=== PATIENT | female | born 1945 | race Caucasian/White ===

== ENCOUNTER 2018-07-25 13:19 | Inpatient (IN) | payer OTHER ==
[2018-07-25] MEDS ORDERED: METOPROLOL TARTRATE 5 MG/5 ML INJ IV ONE (14:00)
--- NOTE | 2018-07-25 14:23 | RAD REPORT ---
EXAM DESCRIPTION: RAD - Chest Single View - 07/25/2018 2:16 pm CLINICAL HISTORY: arrythmia Chest pain. COMPARISON: ABDOMEN 1 VIEW KUB dated 07/06/2014; CHEST SINGLE VIEW dated 08/21/2013; CHEST SINGLE VIEW dated 08/19/2013; CHEST PA AND LAT 2 VIEW dated 12/08/2011 FINDINGS: Portable technique limits examination quality. The lungs are grossly clear. The heart is mildly enlarged in size. No displaced fractures. IMPRESSION: Mild cardiomegaly.
[2018-07-25 14:32] LABS: Protime INR 1.39
[2018-07-25 14:35] LABS: Absolute Lymphocytes (CBC) 1.9 K/uL (0.7-4.9); Absolute Monocytes 0.7 K/uL (0.1-1.3); Absolute Neutrophil 5.7 K/uL (1.8-8.0); Basophils % 1.1 % (0-1.3); Eosinophils % 1.5 % (0-4.4); Hematocrit 38.3 % (36.0-45.0); Lymphocytes % 22.9 % (15.3-44.8); MPV 10.6 fL (7.6-11.3); Monocytes % 7.9 % (3.3-12.3)
[2018-07-25 14:49] LABS: ALT/SGPT 26 U/L (12-78); AST/SGOT 8 U/L (15-37); Albumin 3.2 g/dL (3.4-5.0); Alkaline Phosphatase 46 U/L (45-117); BUN Blood Urea Nitrogen 40 mg/dL (7-18); Bicarbonate 26 mmol/L (21-32); Bilirubin Direct 0.2 mg/dL (0-0.2); Glucose Level 89 mg/dL (74-106); NT PRO-BNP 3847 pg/mL (<125); Potassium 3.6 mmol/L (3.5-5.1); Protein, Total 6.5 g/dL (6.4-8.2); Sodium Level 142 mmol/L (136-145); Troponin (Emerg Dept Use Only) < 0.02 ng/mL (0.0-0.045)
[2018-07-25] MEDS ORDERED: DIGOXIN 0.25 MG/ML AMP ONE (15:06)
[2018-07-25] MEDS ORDERED: SOTALOL HCL 80 MG TAB ONE (15:06)
--- NOTE | 2018-07-25 17:58 | EDPHYS ---
Physician Documentation [facility] Name: Angelina Cedillo Age: 72 yrs Sex: Female : 1945 Arrival Date: 07/25/2018 Time: : Bed 6 Private MD: Fantasma Mendoza ED Physician Guicho Nath HPI: 07/25 17:58 This 72 yrs old Female presents to ER via Wheelchair with complaints of AFIB kdr SENT BY DR CANALES. 17:58 The patient presents with a history of irregular heart beat, heart racing. Context: The kdr symptoms occur at rest. Onset: The symptoms/episode began/occurred 3 day(s) ago. Duration: The patient or guardian reports a single episode, that is still ongoing. Modifying factors: The symptoms are aggravated by light activity, The symptoms are alleviated by nothing. Associated signs and symptoms: The patient has no apparent associated signs or symptoms. Severity of symptoms: At their worst the symptoms were mild in the emergency department the symptoms are unchanged Pain is currently a 0 / 10. The patient has not experienced similar symptoms in the past. The patient has been recently seen by a physician: Seen by Dr. Canales on Sunday and started on beta kleber and Eliquis. Since her rate had worsened, he asked that she come to the ED for further evaluation and treatment. Historical: - Allergies: 13:35 Latex, Natural Rubber; aj1 13:35 Codeine; aj1 - Home Meds: 13:35 Metoprolol Tartrate Oral [Active]; gabapentin oral oral [Active]; Symbicort inhalation aj1 inhalation [Active]; Allopurinol Oral [Active]; Vitamin B-12 Oral [Active]; levothyroxine oral [Active]; Furosemide Oral [Active]; montelukast oral oral [Active]; Omeprazole Oral [Active]; Tramadol Oral [Active]; Eliquis oral oral [Active]; - PMHx: 13:35 Atrial Fib; Gout; Hypothyroidism; aj1 - PSHx: 13:35 Hysterectomy; Cholecystectomy; abdominal surgery; aj1 - Immunization history:: Flu vaccine is not up to date. - Social history:: Smoking status: Patient/guardian denies using tobacco. - Ebola Screening: : Patient denies travel to an Ebola-affected area in the 21 days before illness onset. ROS: 17:58 Constitutional: Negative for fever, chills, and weight loss, Eyes: Negative for injury, kdr pain, redness, and discharge, ENT: Negative for injury, pain, and discharge, Neck: Negative for injury, pain, and swelling, Respiratory: Negative for shortness of breath, cough, wheezing, and pleuritic chest pain, Abdomen/GI: Negative for abdominal pain, nausea, vomiting, diarrhea, and constipation, Back: Negative for injury and pain, : Negative for injury, bleeding, discharge, and swelling, MS/Extremity: Negative for injury and deformity, Skin: Negative for injury, rash, and discoloration, Neuro: Negative for headache, weakness, numbness, tingling, and seizure activity. Psych: Negative for depression, anxiety, suicide ideation, homicidal ideation, and hallucinations, Allergy/Immunology: Negative for hives, rash, and allergies, Endocrine: Negative for neck swelling, polydipsia, polyuria, polyphagia, and marked weight changes, Hematologic/Lymphatic: Negative for swollen nodes, abnormal bleeding, and unusual bruising. 17:58 Cardiovascular: Positive for palpitations, Negative for chest pain, edema, orthopnea, paroxysmal nocturnal dyspnea. Exam: 17:58 Constitutional: This is a well developed, well nourished patient who is awake, alert, kdr and in no acute distress. Head/Face: Normocephalic, atraumatic. Eyes: Pupils equal round and reactive to light, extra-ocular motions intact. Lids and lashes normal. Conjunctiva and sclera are non-icteric and not injected. Cornea within normal limits. Periorbital areas with no swelling, redness, or edema. Neck: Trachea midline, no thyromegaly or masses palpated, and no cervical lymphadenopathy. Supple, full range of motion without nuchal rigidity, or vertebral point tenderness. No Meningismus. Chest/axilla: Normal chest wall appearance and motion. Nontender with no deformity. No lesions are appreciated. Respiratory: Lungs have equal breath sounds bilaterally, clear to auscultation and percussion. No rales, rhonchi or wheezes noted. No increased work of breathing, no retractions or nasal flaring. Abdomen/GI: Soft, non-tender, with normal bowel sounds. No distension or tympany. No guarding or rebound. No evidence of tenderness throughout. Back: No spinal tenderness. No costovertebral tenderness. Full range of motion. Skin: Warm, dry with normal turgor. Normal color with no rashes, no lesions, and no evidence of cellulitis. MS/ Extremity: Pulses equal, no cyanosis. Neurovascular intact. Full, normal range of motion. Neuro: Awake and alert, GCS 15, oriented to person, place, time, and situation. Cranial nerves II-XII grossly intact. Motor strength 5/5 in all extremities. Sensory grossly intact. Cerebellar exam normal. Normal gait. Psych: Awake, alert, with orientation to person, place and time. Behavior, mood, and affect are within normal limits. 17:58 Cardiovascular: Rate: tachycardic, Rhythm: irregularly irregular, Pulses: no pulse deficits are appreciated, Heart sounds: normal. 17:58 ECG was reviewed by the Attending Physician. Vital Signs: 13:35 BP 109 / 88; Pulse 78; Resp 18; Temp 97.6(O); Pulse Ox 98% on R/A; Weight 139.25 kg aj1 (R); Height 5 ft. 6 in. (167.64 cm) (R); Pain 0/10; 13:50 BP 132 / 91; Pulse 156; Resp 18; Pulse Ox 98% on R/A; Pain 0/10; sg 14:16 BP 106 / 58; Pulse 146 MON; Resp 18 S; Pulse Ox 98% ; sg 14:30 BP 98 / 63; Pulse 144 MON; Resp 22; Pulse Ox 98% ; sg 14:30 Pulse 140; tw2 15:00 BP 101 / 84; Pulse 138; Resp 19 S; Pulse Ox 99% on R/A; sg 16:30 BP 114 / 78; Pulse 135 MON; Resp 17; Pulse Ox 97% on R/A; sg 19:12 BP 123 / 96; Pulse 135; Resp 22; Pulse Ox 97% on R/A; tl2 13:35 Body Mass Index 49.55 (139.25 kg, 167.64 cm) aj1 MDM: 17:58 Patient medically screened. kdr 17:58 Data reviewed: vital signs, nurses notes. kdr 07/25 13:46 Order name: Basic Metabolic Panel kdr 07/25 13:46 Order name: CBC with Diff kdr 07/25 13:46 Order name: LFT's; Complete Time: 16:49 kdr 07/25 13:46 Order name: Magnesium; Complete Time: 16:49 kdr 07/25 13:46 Order name: NT PRO-BNP; Complete Time: 16:49 kdr 07/25 13:46 Order name: PT-INR; Complete Time: 16:49 kdr 07/25 13:46 Order name: Troponin (emerg Dept Use Only); Complete Time: 16:49 kdr 07/25 13:46 Order name: XRAY Chest (1 view) kdr 07/25 13:47 Order name: Basic Metabolic Panel; Complete Time: 16:49 EDMS 07/25 13:47 Order name: CBC with Automated Diff; Complete Time: 16:49 EDMS 07/25 14:24 Order name: RAD; Complete Time: 16:49 EDMS 07/25 13:46 Order name: EKG; Complete Time: 13:47 kdr 07/25 13:46 Order name: Cardiac monitoring; Complete Time: 14:30 kdr 07/25 13:46 Order name: EKG - Nurse/Tech; Complete Time: 14:30 kdr 07/25 13:46 Order name: IV Saline Lock; Complete Time: 14:08 kdr 07/25 13:46 Order name: Labs collected and sent; Complete Time: 14:08 kdr 07/25 13:46 Order name: O2 Per Protocol; Complete Time: 14:08 kdr 07/25 13:46 Order name: O2 Sat Monitoring; Complete Time: 14:08 kdr 07/25 16:46 Order name: Diet Heart Healthy; Complete Time: 16:46 sg EC:58 Rate is 135 beats/min. Rhythm is irregularly irregular, A fib with No ectopy. QRS [place] kdr is Normal. Clinical impression: Atrial Fibrillation. Administered Medications: 13:56 Drug: Metoprolol 5 mg Route: IVP; Site: left antecubital; sg 14:30 Follow up: Pulse 140 bpm; Response: No adverse reaction; Other; Other: HR is lowered tw2 15:05 Drug: Digoxin 0.5 mg Route: IVP; Site: left antecubital; sg 15:19 Follow up: Response: No adverse reaction; No change in condition sg 16:54 Drug: Betapace 80 mg Route: PO; sg 19:57 Follow up: Response: Cardiac rhythm is unchanged tl2 Disposition: 07/25/18 17:58 Hospitalization ordered by Yanelis Houser for Inpatient Admission. Preliminary diagnosis is Atrial Fibrillation w/ RVR. - Bed requested for Telemetry/MedSurg (Inpatient). - Status is Inpatient Admission. tl2 - Condition is Fair. - Problem is new. - Symptoms are unchanged. UTI on Admission? No Signatures: Dispatcher [employer] EDMS Negar Durán RN RN aj1 Jazlyn Sherman RN RN dw Dorian Kong RN RN Guicho Nath MD MD [facility] Sanket Rudd em1 Alisson Dixon RN RN tl2 Nicole Lema Tara RN tw2 Corrections: (The following items were deleted from the chart) 18:14 17:58 Hospitalization Ordered by Yanelis Houser MD for Inpatient Admission. Preliminary dw diagnosis is Atrial Fibrillation w/ RVR. Bed requested for Telemetry/MedSurg (Inpatient). Status is Inpatient Admission. Condition is Fair. Problem is new. Symptoms are unchanged. UTI on Admission? No. kdr 18:43 18:14 07/25/2018 17:58 Hospitalization Ordered by Yanelis Houser MD for Inpatient eb Admission. Preliminary diagnosis is Atrial Fibrillation w/ RVR. Bed requested for Telemetry/MedSurg (Inpatient). Status is Inpatient Admission. Condition is Fair. Problem is new. Symptoms are unchanged. UTI on Admission? No. dw 19:20 18:43 07/25/2018 17:58 Hospitalization Ordered by Yanelis Houser MD for Inpatient em1 Admission. Preliminary diagnosis is Atrial Fibrillation w/ RVR. Bed requested for Telemetry/MedSurg (Inpatient). Status is Inpatient Admission. Condition is Fair. Problem is new. Symptoms are unchanged. UTI on Admission? No. eb 20:07 19:20 07/25/2018 17:58 Hospitalization Ordered by Yanelis Houser MD for Inpatient tl2 Admission. Preliminary diagnosis is Atrial Fibrillation w/ RVR. Bed requested for Telemetry/MedSurg (Inpatient). Status is Inpatient Admission. Condition is Fair. Problem is new. Symptoms are unchanged. UTI on Admission? No. em1
--- NOTE | 2018-07-25 17:58 | ER ---
Nurse's Notes [facility] Name: Angelina Cedillo Age: 72 yrs Sex: Female : 1945 Arrival Date: 07/25/2018 Time: : Bed 6 Private MD: Fantasma Mendoza Diagnosis: Atrial Fibrillation w/ RVR Presentation: 07/25 13:27 Presenting complaint: Patient states: "Dr. Canales said I was in A-Fib and my heart rate aj1 is too high and they need to correct it." Reports that her heart rate was in the 160's at Dr. Canales office. Transition of care: patient was not received from another setting of care. Onset of symptoms was July 25, 2018 at 13:30. Risk Assessment: Do you want to hurt yourself or someone else? Patient reports no desire to harm self or others. Initial Sepsis Screen: Does the patient meet any 2 criteria? No. Patient's initial sepsis screen is negative. Does the patient have a suspected source of infection? No. Patient's initial sepsis screen is negative. Care prior to arrival: None. 13:27 Method Of Arrival: Wheelchair aj1 13:27 Acuity: MARLO 3 aj1 Triage Assessment: 13:35 General: Appears in no apparent distress. comfortable, Behavior is calm, cooperative, aj1 appropriate for age. Pain: Denies pain. Neuro: Level of Consciousness is awake, alert, obeys commands. Cardiovascular: Patient's skin is warm and dry. Respiratory: Airway is patent Respiratory effort is even, unlabored, Respiratory pattern is regular, symmetrical. Historical: - Allergies: 13:35 Latex, Natural Rubber; aj1 13:35 Codeine; aj1 - Home Meds: 13:35 Metoprolol Tartrate Oral [Active]; gabapentin oral oral [Active]; Symbicort inhalation aj1 inhalation [Active]; Allopurinol Oral [Active]; Vitamin B-12 Oral [Active]; levothyroxine oral [Active]; Furosemide Oral [Active]; montelukast oral oral [Active]; Omeprazole Oral [Active]; Tramadol Oral [Active]; Eliquis oral oral [Active]; - PMHx: 13:35 Atrial Fib; Gout; Hypothyroidism; aj1 - PSHx: 13:35 Hysterectomy; Cholecystectomy; abdominal surgery; aj1 - Immunization history:: Flu vaccine is not up to date. - Social history:: Smoking status: Patient/guardian denies using tobacco. - Ebola Screening: : Patient denies travel to an Ebola-affected area in the 21 days before illness onset. Screenin:09 Abuse screen: Denies threats or abuse. Denies injuries from another. Nutritional sg screening: No deficits noted. Tuberculosis screening: No symptoms or risk factors identified. Never had TB. Fall Risk None identified. Assessment: 14:00 General: Appears in no apparent distress. comfortable, obese, well groomed, well sg developed, well nourished, Behavior is calm, cooperative, appropriate for age. Pain: Denies pain. Neuro: No deficits noted. Cardiovascular: Heart tones S1 S2 present Capillary refill is brisk in bilateral fingers Patient's skin is warm and dry. Chest pain is denied. Cardiovascular: Reports palpitations, shortness of breath. Respiratory: Airway is patent Respiratory effort is even, unlabored, Respiratory pattern is regular, symmetrical, Breath sounds are clear. GI: No signs and/or symptoms were reported involving the gastrointestinal system. : No deficits noted. EENT: No signs and/or symptoms were reported regarding the EENT system. Derm: Skin is pink, warm \\T\\ dry. Musculoskeletal: No signs and/or symptoms reported regarding the musculoskeletal system. 15:00 Reassessment: Patient appears in no apparent distress at this time. No changes from tw2 previously documented assessment. Patient and/or family updated on plan of care and expected duration. Pain level reassessed. Patient is alert, oriented x 3, equal unlabored respirations, skin warm/dry/pink. 15:36 Reassessment: Patient appears in no apparent distress at this time. Patient and/or sg family updated on plan of care and expected duration. Pain level reassessed. Patient is alert, oriented x 3, equal unlabored respirations, skin warm/dry/pink. at bedside evaluating pt at this time, pt denies pain or having s/s at this time. 16:30 Reassessment: Patient appears in no apparent distress at this time. Patient and/or sg family updated on plan of care and expected duration. Pain level reassessed. Patient is alert, oriented x 3, equal unlabored respirations, skin warm/dry/pink. denies pain, elimination needs have been met, pt family remains at bedside, call omer remains within reach, SRX2, antonette in low and locked position, pt requesting food, Dr. Nath notified. 16:48 Reassessment: Patient appears in no apparent distress at this time. Patient and/or sg family updated on plan of care and expected duration. Pain level reassessed. Patient is alert, oriented x 3, equal unlabored respirations, skin warm/dry/pink. pt updated that a food tray has been ordered, pt reports having a long list of food allergy, but main allergy to tomato and potato, reports due to eliquis does not eat green leafy vegetables as well. 17:15 Reassessment: Patient appears in no apparent distress at this time. Patient is alert, sg oriented x 3, equal unlabored respirations, skin warm/dry/pink. pt awaiting PO diet tray at this time. 17:40 Reassessment: Patient appears in no apparent distress at this time. Patient and/or sg family updated on plan of care and expected duration. Pain level reassessed. Patient is alert, oriented x 3, equal unlabored respirations, skin warm/dry/pink. pt tolerated PO diet tray at this time, no assistance required, awaiting a bed assignment and admission orders, pt stated understanding. 18:40 Reassessment: Patient appears in no apparent distress at this time. Patient and/or sg family updated on plan of care and expected duration. Pain level reassessed. Patient is alert, oriented x 3, equal unlabored respirations, skin warm/dry/pink. awaiting to call report at this time, a bed assignment has been made but the room number will be changed from 4th floor to 2nd floor, pt updated and stated understanding Patient denies pain at this time. Patient states feeling better. 19:12 General: Appears in no apparent distress. comfortable, Behavior is calm, cooperative, tl2 appropriate for age. General: Awaiting new room assignment. Pain: Denies pain. Neuro: Level of Consciousness is awake, alert, obeys commands, Oriented to person, place, time, situation. Cardiovascular: Denies chest pain, Heart tones S1 S2 present. Respiratory: Airway is patent Respiratory effort is even, unlabored, Respiratory pattern is regular, symmetrical. GI: No signs and/or symptoms were reported involving the gastrointestinal system. Derm: Skin is pink, warm \\T\\ dry. 19:42 Reassessment: attempted to call report to receiving nurse, nurse stated that she was tl2 still getting report on her current patients at that she would call back. Vital Signs: 13:35 BP 109 / 88; Pulse 78; Resp 18; Temp 97.6(O); Pulse Ox 98% on R/A; Weight 139.25 kg aj1 (R); Height 5 ft. 6 in. (167.64 cm) (R); Pain 0/10; 13:50 BP 132 / 91; Pulse 156; Resp 18; Pulse Ox 98% on R/A; Pain 0/10; sg 14:16 BP 106 / 58; Pulse 146 MON; Resp 18 S; Pulse Ox 98% ; sg 14:30 BP 98 / 63; Pulse 144 MON; Resp 22; Pulse Ox 98% ; sg 14:30 Pulse 140; tw2 15:00 BP 101 / 84; Pulse 138; Resp 19 S; Pulse Ox 99% on R/A; sg 16:30 BP 114 / 78; Pulse 135 MON; Resp 17; Pulse Ox 97% on R/A; sg 19:12 BP 123 / 96; Pulse 135; Resp 22; Pulse Ox 97% on R/A; tl2 13:35 Body Mass Index 49.55 (139.25 kg, 167.64 cm) aj1 Vitals: 19:12 Cardiac Rhythm Assessment Atrial fibrillation. tl2 ED Course: 13:23 Patient arrived in ED. sb2 13:25 Fantasma Mendoza MD is Private Physician. sb2 13:30 Triage completed. aj1 13:35 Arm band placed on Patient placed in an exam room. aj1 13:37 Placed in gown. Bed in low position. Adult w/ patient. presentation team member on. Pulse ox on. tw2 NIBP on. Notified ED physician of vital signs. 13:46 Guicho Nath MD is Attending Physician. kdr 14:00 Birgit Oconnor RN is Primary Nurse. tw2 14:00 Initial lab(s) drawn, by ED staff, sent to lab. Inserted saline lock: 20 gauge in left sg antecubital area, using aseptic technique. Blood collected. 14:12 X-ray completed. Portable x-ray completed in exam room. Patient tolerated procedure ls3 well. 17:57 Yanelis Houser MD is Hospitalizing Provider. kdr 18:59 Primary Nurse role handed off by iBrgit Oconnor RN tw2 19:51 No provider procedures requiring assistance completed. Patient admitted, IV remains in tl2 place. Administered Medications: 13:56 Drug: Metoprolol 5 mg Route: IVP; Site: left antecubital; sg 14:30 Follow up: Pulse 140 bpm; Response: No adverse reaction; Other; Other: HR is lowered tw2 15:05 Drug: Digoxin 0.5 mg Route: IVP; Site: left antecubital; sg 15:19 Follow up: Response: No adverse reaction; No change in condition sg 16:54 Drug: Betapace 80 mg Route: PO; sg 19:57 Follow up: Response: Cardiac rhythm is unchanged tl2 Outcome: 17:58 Decision to Hospitalize by Provider. kdr 19:57 Admitted to Med/surg accompanied by tech, family with patient, via stretcher, room 206, tl2 Report called to MICHELLE Tamayo 19:57 Condition: stable 19:57 Discharge instructions given to patient, family, Instructed on the need for admit. 20:07 Patient left the ED. tl2 Signatures: Negar Durán, RN RN aj1 Dorian Kong RN Guicho Mary MD MD [facility] Birgit Oconnor RN RN tw2 Alisson Dixon RN RN tl2 Estephania Mahoney2 Tracy Blevins ls3
[2018-07-25] MEDS ORDERED: ACETAMINOPHEN 500 MG TAB PO PRN (19:51)
[2018-07-25] MEDS ORDERED: ONDANSETRON 4 MG/2 ML VIAL IV PRN (19:51)
[2018-07-25] MEDS: NA CHLORIDE 0.9% 1,000 ML IV SCH ×2 (19:51→20:58)
[2018-07-26 00:21] VITALS: BMI 49.4
[2018-07-26 00:23] LABS: Urine Appearance CLEAR; Urine Bilirubin NEGATIVE (NEG); Urine Blood NEGATIVE (NEG); Urine Color YELLOW; Urine Glucose NEGATIVE (NEG); Urine Microscopic Reflex ORDER UMIC; Urine Protein NEGATIVE (NEG); Urine Specific Gravity 1.015 (1.005-1.030); Urine Urobilinogen 0.2 mg/dL (0.2-1.0); Urine pH 6.5 (5.0-7.0)
[2018-07-26 01:36] LABS: Urine Bacteria LOADED /HPF (<20); Urine Culture Reflex Order REFLEXED; Urine RBC NONE SEEN /HPF (NONE SEEN)
[2018-07-26] MEDS: NA CHLORIDE 0.9% 1,000 ML IV SCH (05:21)
[2018-07-26 06:01] LABS: Absolute Lymphocytes (CBC) 1.7 K/uL (0.7-4.9); Absolute Monocytes 0.6 K/uL (0.1-1.3); Basophils % 0.8 % (0-1.3); Eosinophils % 2.2 % (0-4.4); Lymphocytes % 22.5 % (15.3-44.8); MPV 9.9 fL (7.6-11.3); Monocytes % 7.7 % (3.3-12.3); RBC Red Blood Cell Count 4.06 M/uL (3.86-4.86)
[2018-07-26 06:37] LABS: Bilirubin Total 1.3 mg/dL (0.2-1.0); Phosphorus 3.4 mg/dL (2.5-4.9); Protein, Total 6.2 g/dL (6.4-8.2)
--- NOTE | 2018-07-26 07:01 | EKG ---
Test Date: 2018-07-25 Test Time: 13:53:10 Associate Embalmer/Funeral Director: MEASUREMENT RESULTS: Intervals: Rate: 158 [place]: QRSD: 98 QT: 254 QTc: 411 [place]: P: KS: QRS: -21 T: 171 INTERPRETIVE STATEMENTS: afib with rvr Cannot rule out Anterior infarct, age undetermined ST & T wave abnormality, consider inferolateral ischemia Abnormal ECG Compared to ECG 02/28/2016 13:54:33 ST (T wave) deviation now present Possible ischemia now present Sinus bradycardia no longer present Intraventricular conduction delay no longer present T-wave abnormality no longer present Myocardial infarct finding still present Electronically Signed On 07-26-18 06:52:44 DUMBWAITER OPERATOR by Carlos Byrne
[2018-07-26] MEDS ORDERED: FUROSEMIDE 20 MG/ 2ML VIAL IV ONE (08:59)
[2018-07-26] MEDS ORDERED: ALLOPURINOL 100 MG TAB PO SCH (09:00)
[2018-07-26] MEDS ORDERED: FUROSEMIDE 40 MG TABLET PO SCH (09:00)
[2018-07-26] MEDS: FUROSEMIDE 40 MG/4 ML VIAL IV SCH ×2 (09:00→16:04)
[2018-07-26] MEDS: MONTELUKAST 10 MG TAB PO SCH (09:00)
[2018-07-26] MEDS: MULTIVITAMINS,THERAPEUT 1 TAB PO SCH (09:14)
[2018-07-26] MEDS: GABAPENTIN 300 MG CAP PO SCH ×2 (09:14→21:15)
[2018-07-26] MEDS: CEFTRIAXONE/SWI 1gm 1 GM/10 ML SYR IV SCH (10:00)
--- NOTE | 2018-07-26 10:23 | P.HP ---
Certification for Inpatient Patient admitted to: Inpatient With expected LOS: >2 Midnights Patient will require the following post-hospital care: None Practitioner: I am a practitioner with admitting privileges, knowledge of patient current condition, hospital course, and medical plan of care. Services: Services provided to patient in accordance with Admission requirements found in Title 42 Section 412.3 of the Code of Federal Regulations Patient History Date of Service: 07/25/18 Reason for admission: Atrial fibrillation with rapid ventricular response History of Present Illness: Patient is a 72-year-old female came to the hospital with AFib with RVR. Patient been started on sotalol at home. Patient also on anti coagulation. However symptoms of not been improving. Patient came into the ER for further evaluation. Emergency room patient's troponins were negative. EKG was also negative. Patient was in AFib with RVR. Patient will be started on sotalol in and digoxin as needed. Patient will need additional her records regarding patient's plan of care at discharge. Allergies codeine Allergy (Severe, Verified 02/28/16 13:41) Shortness of breath avocado [Avocado] Allergy (Intermediate, Verified 02/28/16 13:41) Rash banana [Banana] Allergy (Intermediate, Verified 02/28/16 13:41) Rash Latex, Natural Rubber Allergy (Intermediate, Verified 02/28/16 13:41) Rash pineapple [Pineapple] Allergy (Intermediate, Verified 02/28/16 13:41) Rash tomato [Tomato] Allergy (Intermediate, Verified 02/28/16 13:41) Rash potato Allergy (Verified 07/25/18 22:07) Hives Home Medications: Allopurinol 100 mg PO DAILY 07/25/18 Budesonide/Formoterol Fumarate [Symbicort 160-4.5 Mcg Inhaler] 2 puff IH Q12H PRN 07/25/18 Cetirizine HCl [Zyrtec] 1 tab PO BEDTIME 07/25/18 Docusate [Colace Cap*] 2 cap PO BEDTIME 07/25/18 Furosemide [Lasix*] 1 tab PO DAILY 07/25/18 Gabapentin [Neurontin] 600 mg PO BID 07/25/18 Levothyroxine Sodium 1 tab PO 0630 07/25/18 Montelukast [Singulair*] 1 tab PO DAILY 07/25/18 Omeprazole 1 tab PO BEDTIME 07/25/18 Vit B Comp No.3/Folic/C/Biotin [Nephro-Vazquez Rx Tablet] 1 tab PO DAILY 07/25/18 - Past Medical/Surgical History Has patient received pneumonia vaccine in the past: Yes Diabetic: Yes -: HTN -: COPD -: DM -: CHF -: OVARIAN CA -: GERD -: GALLBLADDER REMOVED - Social History Smoking Status: Never smoker Alcohol use: No CD- Drugs: No Caffeine use: Yes Place of Residence: Home Review of Systems 10-point ROS is otherwise unremarkable Physical Examination - Vital Signs Temperature: 97.0 F Blood Pressure: 144/90 Pulse: 89 Respirations: 18 Pulse Ox (%): 98 - Physical Exam General: Alert, In no apparent distress, Oriented x3 HEENT: Atraumatic, Normocephalic, PERRLA Neck: Supple, 2+ carotid pulse no bruit Respiratory: Clear to auscultation bilaterally, Normal air movement Cardiovascular: Normal pulses, Regular rate/rhythm, Normal S1 S2 Capillary refill: <2 Seconds Gastrointestinal: Normal bowel sounds, Hypoactive, Soft and benign, Non- distended, No tenderness Musculoskeletal: No clubbing, No swelling Integumentary: No rashes Neurological: Normal gait, Normal speech, Normal strength at 5/5 x4 extr, Normal tone, Sensation intact, Cranial nerves 3-12 intact - Studies Laboratory Data (last 24 hrs) 07/25/18 14:00: PT 16.4 H, INR 1.39 07/25/18 14:00: WBC 8.5, Hgb 12.6, Hct 38.3, Plt Count 178 07/25/18 14:00: Sodium 142, Potassium 3.6, BUN 40 H, Creatinine 1.60 H, Glucose 89, Magnesium 2.0, Total Bilirubin 1.0, AST 8 L, ALT 26, Alkaline Phosphatase 46 Assessment & Plan - Problems (Diagnosis) (1) Atrial fibrillation with RVR Onset Date: 07/26/18 Current Visit: Yes Status: Acute (2) Abnormal renal function Current Visit: No Status: Active (3) Dyspnea Current Visit: No Status: Active (4) Urinary tract infectious disease Current Visit: No Status: Active - Plan Plan: 1. medication for rate control 2. Anti coagulation 3. Gentle hydration 4. Strict input and output 5. Start physical therapy 6. GI and DVT prophylaxis Discharge Plan: Home Plan to discharge in: 48 Hours - Advance Directives Does patient have a Living Will: No Does patient have a Durable POA for Healthcare: No - Code Status/Comfort Care Code Status Assessed: Yes Code Status: Full Code Critical Care: No Time Spent Managing PTS Care (In Minutes): 50
--- NOTE | 2018-07-26 11:37 | CON ---
Date of Consultation: 07/25/2018 Reason For Consultation: Atrial fibrillation. History Of Present Illness: Ms. Cedillo is a 72-year-old woman. She has a history of atrial fib rillation that is paroxysmal. Recent echocardiogram was negative about a week ago. She has had a no rmal stress test and normal catheterization about a year ago. She has a history of gout, COPD, hypot hyroidism, neuropathy, and gastroesophageal reflux disease. She saw Dr. Canales in the office on 07/07, had a heart rate of 140-150. She was sent to the emergency room for further evaluation and t reatment. She has been taking Eliquis for about 8 days. She was placed on Betapace 80 mg 1 p.o. b.i .d. She has symptoms of palpitation and shortness of breath with it and occasional chest pain with a trial fibrillation. Denies nausea, vomiting, diaphoresis, PND, orthopnea, or pedal edema. Past Medical History: As stated above. Allergies: SHE IS ALLERGIC TO CODEINE, LATEX, AND MULTIPLE FRUITS AND VEGETABLES INCLUDING AVOCADO, PINEAPPLE, TOMATOES, AND POTATOES. Medications: At home include Lasix, Neurontin, allopurinol, Symbicort, Synthroid, Prilosec, Singulai r, and Eliquis. Family History: Positive for heart disease. Review of Systems: Negative. Social History: Unremarkable. Denies tobacco, alcohol, or drug use. Physical Examination: Vital Signs: She was in atrial fibrillation, rate of 114. HEENT: Negative. Neck: Supple without any bruit, lymphadenopathy, JVD, or thyromegaly. Chest: Clear to auscultation and percussion. Cardiac: Revealed atrial fibrillation. No murmurs, gallops, or rubs. Abdomen: Benign. Extremities: Revealed no clubbing, cyanosis, or edema. Diagnostic Data: She had an atrial fibrillation on EKG. Chest x-ray was negative. BNP was 3847, cr eatinine was 1.60. Impression And Plan: 1.Paroxysmal atrial fibrillation, now persistent, rapid rate, improving on Betapace 80 mg 1 p.o. b.i .d. The patient expressed wishes not to have a cardioversion unless it is absolutely necessary. She certainly does not want to have it done in the near future according to her. We will continue the B etapace 80 mg 1 p.o. b.i.d. and see how she does. If we get her rate controlled and she is feeling b laz, we can certainly send her home on Betapace 80 mg b.i.d. and see what happens. We will continu e her Eliquis. 2.Chronic obstructive pulmonary disease. We will resume her Singulair. 3.Gout. 4.Gastroesophageal reflux disease, on Prilosec. 5.Hypothyroidism, on Synthroid. 6.Neuropathy. Ms. Cedillo had an echo ordered for 07/26/2018, but I will cancel that as she has just had one a week ago. I will discuss the case further with Dr. Houser. ROSENDO/ADEOLA Voice ID: [id number] Report ID: [id number]
--- NOTE | 2018-07-26 15:46 | P.PN ---
Subjective Date of Service: 07/26/18 Chief Complaint: Atrial fibrillation with rapid ventricular response Patient seen and examined at bedside with RN. Chart reviewed. Case discussed with cardiology. Patient currently doing well overall no complaints to offer overnight. Still remains in AFib with RVR Review of Systems 10-point ROS is otherwise unremarkable Physical Examination - Vital Signs Temperature: 97.3 F Blood Pressure: 126/73 Pulse: 92 Respirations: 18 Pulse Ox (%): 98 - Physical Exam General: Alert, In no apparent distress HEENT: Atraumatic, PERRLA, EOMI Neck: Supple, JVD not distended Respiratory: Clear to auscultation bilaterally, Normal air movement Cardiovascular: Normal S1 S2, Irregular heart rate/rhythm Gastrointestinal: Normal bowel sounds, No tenderness Musculoskeletal: No tenderness Integumentary: No rashes Neurological: Normal speech, Normal tone, Normal affect Lymphatics: No axilla or inguinal lymphadenopathy - Studies Medications List Reviewed: Yes Assessment And Plan - Current Problems (Diagnosis) (1) Atrial fibrillation with RVR Onset Date: 07/26/18 Current Visit: Yes Status: Acute Plan: Patient continues to be in AFib with RVR -cardiology consulted appreciated recommendations at this time -started on Betapace 80 mg b.i.d. -anti coagulation with Eliquis at this time. (2) HEBER (acute kidney injury) Current Visit: Yes Status: Acute Plan: Most likely secondary to volume overload -IV Lasix -continue monitor closely (3) Urinary tract infectious disease Current Visit: No Status: Active Plan: UA with UTI -urine culture pending at this time -IV Rocephin at this time as well Discharge Plan: Home Plan to discharge in: 48 Hours - Code Status/Comfort Care Code Status Assessed: Yes Critical Care: No
[2018-07-26] MEDS ORDERED: SOTALOL HCL 80 MG TAB PO SCH (18:00)
[2018-07-26] MEDS ORDERED: DOCUSATE NA 100 MG CAP PO SCH (21:00)
[2018-07-26] MEDS: APIXABAN 5 MG TABLET PO SCH (21:15)
[2018-07-27 00:59] VITALS: O2SAT 95
[2018-07-27 05:57] LABS: Absolute Lymphocytes (CBC) 1.7 K/uL (0.7-4.9); Absolute Monocytes 0.6 K/uL (0.1-1.3); Absolute Neutrophil 3.6 K/uL (1.8-8.0); Eosinophils % 2.6 % (0-4.4); Hematocrit 34.9 % (36.0-45.0); Lymphocytes % 28.3 % (15.3-44.8); MPV 9.5 fL (7.6-11.3); Monocytes % 9.3 % (3.3-12.3); RBC Red Blood Cell Count 3.79 M/uL (3.86-4.86)
[2018-07-27 06:28] LABS: Albumin 2.8 g/dL (3.4-5.0); Bilirubin Total 1.3 mg/dL (0.2-1.0); Potassium 3.4 mmol/L (3.5-5.1); Protein, Total 5.8 g/dL (6.4-8.2)
[2018-07-27] MEDS ORDERED: LEVOTHYROXINE SOD 0.025 MG TAB PO SCH (06:30)
[2018-07-27] MEDS ORDERED: POTASSIUM CL SA 10 MEQ TAB PO ONE (07:00)
[2018-07-27] MEDS ORDERED: SOTALOL HCL 80 MG TAB PO ONE ×3 (08:00→11:00)
[2018-07-27] MEDS: CEFTRIAXONE/SWI 1gm 1 GM/10 ML SYR IV SCH (09:26)
[2018-07-27] MEDS: MULTIVITAMINS,THERAPEUT 1 TAB PO SCH (09:27)
[2018-07-27] MEDS: GABAPENTIN 300 MG CAP PO SCH (09:27)
[2018-07-27] MEDS: FUROSEMIDE 40 MG/4 ML VIAL IV SCH (09:28)
[2018-07-27] MEDS: MONTELUKAST 10 MG TAB PO SCH (09:28)
[2018-07-27] MEDS: APIXABAN 5 MG TABLET PO SCH (09:28)
[2018-07-27] MEDS ORDERED: SOTALOL HCL 80 MG TAB PO SCH (10:00)
--- NOTE | 2018-07-27 10:47 | P.DS ---
Admission Date: 07/25/18 Discharge Date: 07/27/18 Disposition: ROUTINE DISCHARGE Discharge Condition: GOOD Reason for Admission: Atrial fibrillation with rapid ventricular response - Problems (1) Atrial fibrillation with RVR Onset Date: 07/26/18 Current Visit: Yes Status: Acute (2) HEBER (acute kidney injury) Current Visit: Yes Status: Acute (3) Urinary tract infectious disease Current Visit: No Status: Active Brief History of Present Illness: Patient is a 72-year-old female came to the hospital with AFib with RVR. Patient been started on sotalol at home. Patient also on anti coagulation. However symptoms of not been improving. Patient came into the ER for further evaluation. Emergency room patient's troponins were negative. EKG was also negative. Patient was in AFib with RVR. Patient will be started on sotalol in and digoxin as needed. Patient will need additional her records regarding patient's plan of care at discharge. Hospital Course: Overall during the hospital stay patient remained stable Patient was initially admitted to the hospital for AFib with RVR with heart rate of 140 stool 150s. Cardiology was consulted who recommended the patient be started on Betapace 80 mg b.i.d. along with Eliquis. Patient was started here on Betapace and did well overall. Patient's heart rate however still remains elevated this Betapace was increased to 120 mg b.i.d. At that time cardiology recommended that patient can now be discharged home under stable condition and can be followed up outpatient. If patient needs cardioversion in the future patient will be set up for that with cardiology on outpatient basis. Patient thus was discharged home under stable condition with prescription of Betapace 120 mg b.i.d. along with Eliquis for anti coagulation. All her chronic conditions remained stable while here in the hospital. Patient was also found to have UTI at this time. Patient was symptomatic and thus was discharged home on Augmentin. Vital Signs/Physical Exam: Temp Pulse Resp BP Pulse Ox 97.6 F 88 18 158/66 H 95 07/27/18 08:00 07/27/18 09:28 07/27/18 08:00 07/27/18 09:28 07/27/18 08:00 General: Alert, In no apparent distress HEENT: Atraumatic, PERRLA, EOMI Neck: Supple, JVD not distended Respiratory: Clear to auscultation bilaterally, Normal air movement Cardiovascular: Normal S1 S2, Irregular heart rate/rhythm Gastrointestinal: Normal bowel sounds, No tenderness Musculoskeletal: No tenderness Integumentary: No rashes Neurological: Normal speech, Normal tone, Normal affect Lymphatics: No axilla or inguinal lymphadenopathy Laboratory Data at Discharge: WBC 6.2 K/uL (4.3-10.9) D 07/27/18 05:32 Hgb 11.6 g/dL (12.0-15.0) L 07/27/18 05:32 Hct 34.9 % (36.0-45.0) L 07/27/18 05:32 Plt Count 141 K/uL (152-406) L 07/27/18 05:32 PT 16.4 SECONDS (9.5-12.5) H 07/25/18 14:00 INR 1.39 07/25/18 14:00 Sodium 141 mmol/L (136-145) 07/27/18 05:32 Potassium 3.4 mmol/L (3.5-5.1) L 07/27/18 05:32 BUN 27 mg/dL (7-18) H 07/27/18 05:32 Creatinine 1.49 mg/dL (0.55-1.3) H 07/27/18 05:32 Glucose 129 mg/dL (74-106) H 07/27/18 05:32 Phosphorus 3.4 mg/dL (2.5-4.9) 07/26/18 05:35 Magnesium 2.0 mg/dL (1.8-2.4) 07/26/18 05:35 Total Bilirubin 1.3 mg/dL (0.2-1.0) H 07/27/18 05:32 AST 4 U/L (15-37) L 07/27/18 05:32 ALT 21 U/L (12-78) 07/27/18 05:32 Alkaline Phosphatase 40 U/L (45-117) L 07/27/18 05:32 Home Medications: Allopurinol 100 mg PO DAILY 07/25/18 Budesonide/Formoterol Fumarate [Symbicort 160-4.5 Mcg Inhaler] 2 puff IH Q12H PRN 07/25/18 Cetirizine HCl [Zyrtec] 1 tab PO BEDTIME 07/25/18 Docusate [Colace Cap*] 2 cap PO BEDTIME 07/25/18 Furosemide [Lasix*] 1 tab PO DAILY 07/25/18 Gabapentin [Neurontin] 600 mg PO BID 07/25/18 Levothyroxine Sodium 1 tab PO 0630 07/25/18 Montelukast [Singulair*] 1 tab PO DAILY 07/25/18 Omeprazole 1 tab PO BEDTIME 07/25/18 Vit B Comp No.3/Folic/C/Biotin [Nephro-Vazquez Rx Tablet] 1 tab PO DAILY 07/25/18 Amoxicillin/Potassium Clav [Augmentin 500-125 Tablet] 1 each PO BID #28 tablet 07/27/18 Apixaban [Eliquis] 5 mg PO BID #60 tablet 07/27/18 Sotalol HCl [Betapace] 120 mg PO BID #60 tablet 07/27/18 New Medications: Amoxicillin/Potassium Clav [Augmentin 500-125 Tablet] 1 each PO BID #28 tablet Apixaban [Eliquis] 5 mg PO BID #60 tablet Sotalol HCl [Betapace] 120 mg PO BID #60 tablet Diet: Regular Activity: Ad yane Followup: Carlos Byrne MD [ACTIVE - CAN ADMIT] - 1 Week
[2018-07-27] MEDS ORDERED: METOPROLOL TAR 25 MG TAB PO SCH (15:40)
[2018-07-27 16:27] VITALS: BP 126/88
[2018-07-27 17:46] VITALS: TEMP 97.6
--- NOTE | 2018-07-29 01:31 | PN ---
Date of Progress Note: 07/27/2018 Subjective: Ms. Cedillo come in with atrial fibrillation, rapid response. No symptoms, began on Betapace 80 mg 1 p.o. b.i.d. Her heart rate remained in the 120s-130s. She refuses cardioversion. We will increase her Betapace dose to 120 b.i.d. and put her on metoprolol 25 mg 1 p.o. b.i.d. Cont inue her Eliquis. She can go home and I will see her in the office in the near future and decide wha t to do next. ROSENDO/ADEOLA Voice ID: [id number] Report ID: [id number]
== END 2018-07-27 17:10 | disposition home or self-care (01) | DRG 309 ==
LOC: ER 13:19 → ERHOLD 18:02 → 2ND 19:48
PROVIDERS: ADMIT Family Medicine; ATTEND Family Medicine
DX: I48.0 Paroxysmal atrial fibrillation (principal); N17.9 Acute kidney failure, unspecified; N39.0 Urinary tract infection, site not specified; Z88.5 Allergy status to narcotic agent; Z91.040 Latex allergy status; M10.9 Gout, unspecified; E03.9 Hypothyroidism, unspecified; J44.9 Chronic obstructive pulmonary disease, unspecified; K21.9 Gastro-esophageal reflux disease without esophagitis; R06.00 Dyspnea, unspecified; Z91.018 Allergy to other foods; E11.40 Type 2 diabetes mellitus with diabetic neuropathy, unspecified; I10 Essential (primary) hypertension
CPT/HCPCS: 36415; 71045; 80048; 80053; 80076; 81003; 81015; 83735; 83880; 84100; 84132; 84484; 85025; 85610; 87077; 87086; 87088; 87186; 93005; 96374; 96375; 99285; J0696; J1160; J1940; J7030

== ENCOUNTER 2018-08-21 09:06 | Day surgery (SDC) | payer OTHER ==
[2018-08-21] MEDS ORDERED: CEFAZOLIN 1GM (PREMIX IV) 1 GM/50 ML BAG ONE (10:02)
[2018-08-21] MEDS ORDERED: Ringers Lactate 1,000 ML IV ONE (10:02)
[2018-08-21] MEDS ORDERED: LIDOCAINE 1% MPF 5 ML VIAL ONE ×2 (13:17→14:11)
[2018-08-21] MEDS ORDERED: PROPOFOL 200 MG/20 ML VIAL IV ONE (14:11)
[2018-08-21] MEDS ORDERED: FENTANYL CITR 100 MCG/2 ML ONE (14:11)
[2018-08-21] MEDS ORDERED: GLYCOPYRROLATE 0.2 MG/ML SYR ONE (14:28)
[2018-08-21] MEDS ORDERED: KETOROLAC 30 MG/ML INJ ONE (14:34)
[2018-08-21] MEDS ORDERED: ONDANSETRON 4 MG/2 ML VIAL ONE (14:51)
[2018-08-21] MEDS ORDERED: Mastisol Adhesive Liq ONE (14:53)
[2018-08-21 15:52] VITALS: BP 151/80; TEMP 97.2; O2SAT 96
--- NOTE | 2018-08-22 02:01 | OP ---
Date of Procedure: 08/21/2018 Surgeon: Gilbert Waite MD Preoperative Diagnosis: Left vision change, rule out temporal arteritis. Postoperative Diagnosis: Left vision change, rule out temporal arteritis. Procedure: Left temporal artery biopsy with Doppler guidance. Estimated Blood Loss: Minimal. Specimen: Left temporal artery. Findings: As above. Anesthesia: General. Complications: None. Disposition: The patient tolerated the procedure in stable condition and taken to the Recovery in go od general condition. Procedure In Detail: The patient was brought to the OR and placed in supine position. General anest hesia was begun. The patient was prepped and draped in usual sterile fashion. Then, Doppler device was used to localize the branch of the left temporal artery anterior and superior to the left ear, an d then a 4 cm incision was made. Subcutaneous tissue was divided. Branch of the temporal artery mel ntified. Proximal and distal control obtained, and a 4 cm segment was excised and sent to Pathology. A 4-0 silk was used to tie off both ends. Wound irrigated. Bleeding controlled with cautery. A 4 -0 chromic was used to approximate the subcutaneous tissue and close the skin. Sterile dressing was applied. The patient was awakened and taken to Recovery in good general condition. /MODL Voice ID: [id number] Report ID: [id number]
--- NOTE | 2018-08-22 02:04 | DS ---
Date of Discharge: 08/21/2018 Discharge Note: The patient will go to day surgery, then home when stable. Disposition: Home. Condition: Stable. Discharge Instructions: Resume home medications and diet. Activity as tolerated. No heavy lifting. Remove outer dressing in 2 days. Shower. Keep Steri-Strips on at all times. Ultracet 1 tablet p. o. q.4 p.r.n. pain. Follow up in my office in 2 weeks. Call for appointment. Follow with Dr. Ian Hough in 1 week. DEREK/ADOELA Voice ID: [id number] Report ID: [id number]
== END 2018-08-21 16:30 | disposition home or self-care (01) ==
LOC: OR 09:06
PROVIDERS: ATTEND Surgery
PROC: 03BT0ZX Excision of Left Temporal Artery, Open Approach, Diagnostic (ICD-10-PCS; principal; 2018-08-21 11:15)
DX: H53.9 Unspecified visual disturbance (principal); I10 Essential (primary) hypertension; G47.33 Obstructive sleep apnea (adult) (pediatric); J45.909 Unspecified asthma, uncomplicated; E07.9 Disorder of thyroid, unspecified; K21.9 Gastro-esophageal reflux disease without esophagitis; E66.01 Morbid (severe) obesity due to excess calories; Z68.42 Body mass index [BMI] 45.0-49.9, adult; Z88.6 Allergy status to analgesic agent; Z91.040 Latex allergy status
CPT/HCPCS: 37609; 88305; J0690; J2405; J2704; J3010

== ENCOUNTER 2020-09-07 06:52 | Day surgery (SDC) | payer OTHER ==
[2020-09-03 14:50] LABS: Absolute Lymphocytes (CBC) 1.2 K/uL (0.7-4.9); Basophils % 0.9 % (0-1.3); Lymphocytes % 17.1 % (15.3-44.8); MPV 9.6 fL (7.6-11.3); RBC Red Blood Cell Count 4.31 M/uL (3.86-4.86)
[2020-09-03 14:51] LABS: Protime INR 1.68
[2020-09-03 14:55] LABS: Potassium 3.4 mmol/L (3.5-5.1)
[2020-09-03 15:16] LABS: Anisocytosis 1+; Blood Morphology Comment NOTED (NOT SEEN); Platelet Estimate ADEQ; White Blood Cell Scan OK (OK)
--- NOTE | 2020-09-03 15:17 | RAD REPORT ---
EXAM DESCRIPTION: RAD - Chest Pa And Lat (2 Views) - 09/03/2020 2:43 pm CLINICAL HISTORY: pre op Chest pain. COMPARISON: Chest Single View dated 07/25/2018; ABDOMEN 1 VIEW KUB dated 07/06/2014; CHEST SINGLE VIE W dated 08/21/2013; CHEST SINGLE VIEW dated 08/19/2013 FINDINGS: Mild interstitial pulmonary edema seen. The heart is moderately enlarged in size. No displ aced fractures. IMPRESSION: Mild CHF.
--- OUTSIDE RECORDS SUMMARY | 2020-09-07 07:07 | XMS REPORT | Continuity of Care Document ---
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 1-17 Fa anabela blood loss Blood Loss 00:00: Pr actic 00 e Chronic Chronic Problem Active 2019-08 [facility] kidney Kidney 1-17 Family disease Disease 00:00: Practic stage 3 Stage 3 00 e Peripheral Peripheral Problem Active [facility] vascular Vascular 8-26 Family disease Disease 00:00: Practic 00 e At risk At Risk Problem Active [facility] for falls for Falls 8- Fami ly 00:00: Practic 00 e Morbid Morbid Problem Active [facility] obesity Obesity 1-13 Family 00:00: Practic 00 e Body mass Body Mass Problem Active Sebastián phillips index 40+ Index 40+ 1-13 Fami ly - severely - Severely 00:00: Pr actic obese Obese 00 e Gastroesop Gastroesop Problem Active 2018-08 [facility] hageal hageal 0-03 Family reflux Reflux 00:00: Practic disease Disease 00 e 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 24 Fami ly 00:00: Practic 00 e Chronic Chronic Problem Active [facility] obstructiv Obstructiv 6-23 Fa anabela e lung e Lung 00:00: Practic disease Disease 00 e Hypothyroi Hypothyroi Problem Active [facility] dism dism 6-19 Family 00:00: Practic 00 e Gout Gout Problem Active [facility] 6-19 Family 00:00: Practic 00 e Essential Essential Problem Active Sebastián phillips hypertensi Hypertensi 01-22 Fa anabela on on 00:00: Practic 00 e Atrial Atrial Problem Active [facility] fibrillati Fibrillati 01-22 Fa anabela on on 00:00: Practic 00 e Congestive Congestive Problem Active [facility] heart Heart 01-22 Family failure Failure 00:00: Practic 00 e 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 00 e Peripheral Peripheral Problem Active [facility] edema [facility] CHF CHF Problem Active [facility] (congestiv (congestiv Darya kes - e heart e heart [facility] failure) failure) l Outpati ent Clinics Dysphagia, Dysphagia, Problem Active [facility] unspecifie unspecifie Darya kes - d type d type [facility] Dry mouth Dry mouth Problem Active [facility] Shortness Shortness Problem Active [facility] of breath of breath [facility] Cough Cough Problem Active [facility] Atrial Atrial Problem Active [facility] fibrillati fibrillati Darya kes - on, on, [facility] unspecifie unspecifie l d type d type Outpati ent Clinics Morbid Morbid Problem Active [facility] obesity obesity [facility] Diverticul Diverticul Problem Active [facility] itis itis [facility] Sin[facility] Sinus Problem Active [facility] problem problem [facility] Cancer Cancer Problem Active [facility] Vitamin D Vitamin D Problem Active [facility] deficiency deficiency D[facility]a [facility] BMI BMI Problem Active [facility] 50.0-59.9, 50.0-59.9, Darya kes - adult adult [facility] Asthma Asthma Problem Active [facility] 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 [facility] 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 [facility] Reflux Reflux Problem Active [facility] History of History of Problem Active [facility] ovarian ovarian [facility] Acquired Acquired Problem Active [facility] hypothyroi hypothyroi Darya kes - dism dism [facility] Seasonal Seasonal Problem [facility] Abnormal Abnormal Problem Active [facility] k[facility] - test test [facility] result result [facility] Heart Heart Problem Active [facility] disease disease [facility] Allergies, Adverse Reactions, Alerts Allergy Allergy Status Severity Reaction(s) Onset Inactive Treating Comm ents Source Name Type Date Date Clinician codeine Adverse Active hallucinate [facility] Reaction [facility] latex Adverse Active rash [facility] Reaction [facility] Codeine Allergy Active Hallucinatio [facility] [place] to ns Family substanc Practic e e Latex Allergy Active Hives [place] to Family substanc Practic e e Social History Smoking Status Start Date Stop Date Source Never Smoker [facility] Medications Ordered Filled Start Stop Current Ordering Indication Dosage Frequency Signature Comments Components Source Medication Medication Date Date Medication? Clinician (SIG) Name Name Levothyroxi Levothyroxi Yes Saundra [address] [facility] ne Sodium ne Sodium Millender in the - morning on Memoria an empty l stomach [facility] Amlodipine Amlodipine Yes Saundra [address] [facility] Besylate Besylate Millender [facility] Furosemide Furosemide Yes Saundra [address] [facility] Millender [facility] albuterol albuterol No 2puff(s Q4H albuterol [place] sulfate HFA sulfate HFA ) sulfate Family 90 90 HFA 90 Practic mcg/actuati mcg/actuati mcg/actuat e on aerosol on aerosol ion inhaler inhaler aerosol Inhale 2 Inhale 2 inhaler puffs every puffs every Inhale 2 4 hours by 4 hours by puffs inhalation inhalation every 4 route as route as hours by needed. needed. inhalation route as needed. allopurinol allopurinol No allopurino [facility] 100 mg 100 mg l 100 mg Family tablet Take tablet Take tablet Practic 1 tablet 1 tablet Take 1 e every day every day tablet by oral by oral every day route for route for by oral 90 days. 90 days. route for 90 days. amlodipine amlodipine No amlodipine [facility] 10 mg 10 mg 10 mg Family tablet Take tablet Take tablet Practic 1 tablet 1 tablet Take 1 e every day every day tablet by oral by oral every day route as route as by oral directed directed route as for 90 for 90 directed days. days. for 90 days. [id number] N50-Qhbds No 1 Q1D [id number] [facility] 1,000 mcg 1,000 mcg 1,000 mcg Family tablet Take tablet Take tablet Practic 1 tablet 1 tablet Take 1 e every day every day tablet by oral by oral every day route as route as by oral directed. directed. route as directed. Eliquis 5 Eliquis 5 No 1 BID Eliquis 5 [place] mg tablet mg tablet mg tablet Family Take 1 Take 1 Take 1 Practic tablet tablet tablet e twice a day twice a day twice a by oral by oral day by route as route as oral route directed directed as for 30 for 30 directed days. days. for 30 days. furosemide furosemide furosemide [facility] 40 mg 40 mg 40 mg Family tablet Take tablet Take tablet Practic 1 tablet 1 tablet Take 1 e every day every day tablet by oral by oral every day route as route as by oral directed directed route as for 90 for 90 directed days. days. for 90 days. gabapentin gabapentin No 1 BID gabapentin [facility] 600 mg 600 mg 600 mg Family tablet Take tablet Take tablet Practic 1 tablet 1 tablet Take 1 e twice a day twice a day tablet by oral by oral twice a route. route. day by oral route. ipratropium ipratropium No ipratropiu [facility] bromide bromide m bromide Fami ly 0.03 % 0.03 % 0.03 % Practic nasal spray nasal spray nasal e spray levothyroxi levothyroxi No 1 Q1D levothyrox [facility] ne 25 mcg ne 25 mcg ine 25 mcg Family tablet Take tablet Take tablet Practic 1 tablet 1 tablet Take 1 e every day every day tablet by oral by oral every day route for route for by oral 90 days. 90 days. route for 90 days. omeprazole omeprazole No 1capsul Q1D omeprazole [facility] 20 mg 20 mg e(s) 20 mg Family capsule,del capsule,del capsule,de Practic ayed ayed layed e release release release Take 1 Take 1 Take 1 capsule capsule capsule every day every day every day by oral by oral by oral route. route. route. OneTouch OneTouch No OneTouch Sebastián alan Ultra Blue Ultra Blue Ultra Blue Family Test Strip Test Strip Test Strip Practic e sotalol 120 sotalol 120 No sotalol [place] mg tablet mg tablet 120 mg Fam juana Take 1 Take 1 tablet Practic tablet tablet Take 1 e twice a day twice a day tablet by oral by oral twice a route as route as day by directed directed oral route for 90 for 90 as days. days. directed for 90 days. Stool Stool No 1capsul Q1D Stool [facility] Softener Softener e(s) Softener Fam juana 100 mg 100 mg 100 mg Practic capsule capsule capsule e Take 1 Take 1 Take 1 capsule capsule capsule every day every day every day by oral by oral by oral route. route. route. Symbicort Symbicort No 2puff(s BID Symbicort [facility] 160 mcg-4.5 160 mcg-4.5 ) 160 F amily mcg/actuati mcg/actuati mcg-4.5 Practic on HFA on HFA mcg/actuat e aerosol aerosol ion HFA inhaler inhaler aerosol Inhale 2 Inhale 2 inhaler puffs twice puffs twice Inhale 2 a day by a day by puffs inhalation inhalation twice a route as route as day by directed directed inhalation for 30 for 30 route as days. days. directed for 30 days. Vitamin D3 Vitamin D3 No 1 Q1D Vitamin D3 [facility] 125 mcg 125 mcg 125 mcg Family (5,000 (5,000 (5,000 Practic unit) unit) unit) e tablet Take tablet Take tablet 1 tablet 1 tablet Take 1 every day every day tablet by oral by oral every day route as route as by oral directed. directed. route as directed. Vital Signs Vital Name Observation Time Observation Value Comments Source BP Diastolic 2020-06-22 00:00:00 77 mm[Hg] [facility] Height 2020-06-22 00:00:00 66 [in_i] [facility] BMI (Body Mass 2020-06-22 00:00:00 [facility] BP Systolic 2020-06-22 00:00:00 111 mm[Hg] [facility] Body Weight 2020-06-22 00:00:00 316 [lb_av] [facility] Height 2020-03-31 00:00:00 66 [in_i] [facility] BMI (Body Mass 2020-03-31 00:00:00 49.2 kg/m2 [facility]) [facility] Body Weight 2020-03-31 00:00:00 305 [lb_av] [facility] Procedures Procedure Date / Time Performing Clinician Source Performed Hernia Repair W/mesh [facility] Hysterectomy (Total) [facility] Cholecystectomy [facility] Screening for Osteoporosis [facility] Screening Mammography [facility] Screening Colonoscopy [facility] Plan of Care Planned Activity Planned Date Details Comments Source Instructions [facility] Encounters Start End Encounter Admission Attending Care Care Encounter Source Date/Time Date/Time Type Type Clinicians Facility Department ID 2020-06-22 2020-06-22 [facility] [place] - [id number] [facility] 00:00:00 00:00:00 Matthew Jenkins y SIGN FABRICATOR: [id number] [facility] Clary Mccormick, [email or web address] [place] [phone] , Ph. 2020-03-31 2020-03-31 [facility] [place] - [id number] [facility] 00:00:00 00:00:00 Matthew Jenkins y SIGN FABRICATOR: [id number] - Pract [facility] Clary Mccormick, [email or web address] [facility], [facility] [phone] , Ph. 2020-03-16 2020-03-16 [facility] [id number] [facility] 11:56[facility]00 11:56:00 [facility] Medicine Outpati ent Clinics 2020-02-12 2020-02-12 [facility] [id number] 17:06:00 17:06:00 [facility] Medicine Outpati ent Clinics 2020-02-02 2020-02-02 [facility] [id number] [facility] 10:13:00 10:13:00 [facility] Medicine Medicine Outpati ent Clinics 2020-01-28 2020-01-28 [facility] [id number] 07[facility]31:00 07:31:00 [facility] Medicine Outpati [facility] Clinics 2020-01-27 2020-01-27 [facility] [id number] 15:00:00 15:00:00 [facility] Medicine Medicine Outpati ent Clinics Results This patient has no known results.
[2020-09-07] MEDS ORDERED: NA CHLORIDE 0.9% 500 ML ONE (07:14)
[2020-09-07] MEDS ORDERED: FLUMAZENIL 0.1 MG/ML (5 mL VIAL) IV ONE (07:38)
[2020-09-07] MEDS ORDERED: ATROPINE SULF 1 MG/10 ML SYR IV ONE (07:38)
[2020-09-07] MEDS ORDERED: MIDAZOLAM HCL 10 ML ONE (07:38)
--- NOTE | 2020-09-07 08:15 | OP ---
Surgeon: Carlos Byrne MD Lime Mixer: Ratna Kelly. Reason For Admission: Direct current cardioversion. Indication: Atrial fibrillation. Indication: Ms. Cedillo is a 75-year-old woman with history of paroxysmal atrial fibrillation, u nresponsive to Betapace at 120 b.i.d. She has been on Eliquis chronically. Has a history of COPD. She is asymptomatic with her atrial fibrillation with a rapid ventricular response. Procedure In Detail: Brought to the lab head today as an outpatient. Received 5 mg of IV push Verse d for sedation. She only received 1 shock of 100 joules and she converted to sinus bradycardia. The re were no complications and no blood loss. Postoperative Diagnosis: Atrial fibrillation, status post successful cardioversion to sinus rhythm. We will continue her present regimen with Betapace 120 b.i.d. as well as Eliquis. If this comes cricket k, we will have to consider other options such as amiodarone or cardioversion with an ablation. ROSENDO/ADEOLA Voice ID: [id number] Report ID: [id number]
[2020-09-07 08:35] VITALS: TEMP 97.9
[2020-09-07 11:41] VITALS: BP 102/66; O2SAT 94
== END 2020-09-07 10:00 | disposition home or self-care (01) ==
LOC: CCL 06:52
DX: I48.0 Paroxysmal atrial fibrillation (principal); Z79.01 Long term (current) use of anticoagulants; J44.9 Chronic obstructive pulmonary disease, unspecified; Z20.822 Contact with and (suspected) exposure to COVID-19; I11.9 Hypertensive heart disease without heart failure; I35.1 Nonrheumatic aortic (valve) insufficiency; K21.9 Gastro-esophageal reflux disease without esophagitis; E03.9 Hypothyroidism, unspecified; G62.9 Polyneuropathy, unspecified
CPT/HCPCS: 93005; 85025; 80048; 36415; 85610; 85730; 71046; 92960; U0002; J2250; J7040